=== PATIENT | female | born 1985 | race Caucasian/White ===

== ENCOUNTER → 2017-02-05 | Outpatient (CLI) | payer MEDICAID ==
[2017-02-05 08:28] LABS: CH 29.9; CHCM 33.1; HCT 38.9 % (34.0-46.0); HDW 2.18; HGB 12.7 gm/dL (11.4-16.0); MCH 29.7 pg (25.0-35.0); MCHC 32.7 g/dL (31.0-37.0); MCV 90.9 fL (80.0-100.0); Mean Platelet Volume 7.7; RBC 4.28 m/uL (3.80-5.40); RDW 13.2 % (11.5-15.5); WBC 6.9 k/uL (3.8-10.6)
[2017-02-05 08:38] LABS: Glucose 85 mg/dL (74-99); Non-African American GFR(MDRD) >60 (>60 ml/min/1.73 sqM)
[2017-02-05 09:10] LABS: Hepatitis B Surface Ag Index 0.08
--- NOTE | 2017-02-05 10:03 | US ---
EXAMINATION TYPE: US OB <= 14 wk fetus DATE OF EXAM: 02/05/2017 COMPARISON: NONE CLINICAL HISTORY: Z36 Confirm dates. EXAM PERFORMED: Transabdominal (TA) EXAM MEASUREMENTS: GESTATIONAL AGE / DATING Physician Established: not established Dates by LMP: (9 weeks/5 days) EDC: 09/05/17 Dates by First Scan: no prior scan Dates by Current Scan for: (10 weeks/0 days) EDC: 09/03/17 MATERNAL ANATOMY Uterus: 9.4 x 7.2 x 8.8cm Right Ovary: 3.6 x 2.6 x 3.2cm Left Ovary: 3.2 x 1.4 x 1.9cm Post CDS / Adnexa: wnl Presence of free fluid: no Presence of corpus luteal cyst: yes, right ovary = 2.3 x 2.3 x 2.7cm GESTATION / SURVEY CRL: 3.1cm (10 weeks/0 days) Yolk Sac (normal less than 6mm): 0.5cm Heart Rate: 163 bpm Rhythm: Normal IUP: Viable IUP Beta HcG (if available): unavailable IMPRESSION: Single viable intrauterine patency corresponding to ultrasound age 10 weeks 0 days with estimated guerrero e of delivery 09/03/2017.
[2017-02-05 15:58] LABS: Treponemal Ab Non-Reactive (Non-Reactive)
== END | disposition home or self-care (01) ==
LOC: RADUSWWP 07:38
PROVIDERS: ATTEND Obstetrics & Gynecology
DX: Z36 Encounter for antenatal screening of mother (principal); O26.811 Pregnancy related exhaustion and fatigue, first trimester; Z3A.10 10 weeks gestation of pregnancy
CPT/HCPCS: 36415; 76801; 82565; 82947; 85027; 86762; 86780; 86850; 86900; 86901; 87340; 87390

== ENCOUNTER → 2017-05-28 | Outpatient (CLI) | payer MEDICAID ==
[2017-05-28 11:10] LABS: CH 29.7; CHCM 32.9; HCT 39.3 % (34.0-46.0); HDW 2.46; HGB 12.8 gm/dL (11.4-16.0); MCH 29.5 pg (25.0-35.0); MCHC 32.5 g/dL (31.0-37.0); MCV 90.6 fL (80.0-100.0); Mean Platelet Volume 7.2; RBC 4.34 m/uL (3.80-5.40); RDW 12.5 % (11.5-15.5)
== END | disposition home or self-care (01) ==
LOC: LABWHC1 09:48
PROVIDERS: ATTEND Obstetrics & Gynecology
DX: Z34.82 Encounter for supervision of other normal pregnancy, second trimester (principal)
CPT/HCPCS: 36415; 82950; 85027; 86850

== ENCOUNTER → 2017-06-08 | Outpatient (CLI) | payer MEDICAID ==
--- NOTE | 2017-06-08 08:37 | US ---
EXAMINATION TYPE: US OB >= 14 wk fetus DATE OF EXAM: 06/08/2017 COMPARISON: None for this at this location. CLINICAL HISTORY: G93.0 UNILATERAL CHOROID PLEXUS CYST Choroid plexus cyst TECHNIQUE: Transabdominal (TA) GESTATIONAL AGE / DATING Physician Established: (27 weeks/2 days) EDC: 09/05/17 Dates by LMP: unknown Dates by First Scan: (27 weeks/4 days) EDC: 09/03/17 Dates by Current Scan: (27 weeks/6 days) EDC: 09/01/17 SURVEY IUP: Single PLACENTA: Anterior PREVIA: No Previa KERRI: 12.8 cm Normal CERVICAL LENGTH (transabdominal: norm > 3.0cm): 3.8 cm BIOMETRY PRESENTATION: Breech LIE: Longitudinal BPD: 6.9 cm 27 weeks / 6 days HC: 26.1 cm 28 weeks / 3 days AC: 22.7 cm 27 weeks / 1 days FL: 5.2 cm 27 weeks / 6 days ESTIMATED WEIGHT IN GRAMS: 1081 grams ESTIMATED WEIGHT IN LBS/OZ: 2 lbs. 6 oz. WEIGHT PERCENTAGE BASED ON ESTABLISHED DATES: 45% HC/AC: 1.15 Normal FL/AC: 23% Normal HEART RATE: 152 bpm RHYTHM: Normal Single viable IUP 27wks/6days with ADRIAN of 09/01/17 IMPRESSION: Single intrauterine gestation estimated at 27 weeks 6 days gestation. The estimated date of confineme nt is 09/01/2017 based on current ultrasound measurements. 2. Reported choroid plexus cyst is not identified on these images.
== END | disposition home or self-care (01) ==
LOC: RADUSWWP 07:00
PROVIDERS: ATTEND Obstetrics & Gynecology
DX: Z34.92 Encounter for supervision of normal pregnancy, unspecified, second trimester (principal); Z3A.27 27 weeks gestation of pregnancy
CPT/HCPCS: 76805

== ENCOUNTER → 2017-07-31 | Outpatient (CLI) | payer MEDICAID ==
[2017-07-31 13:09] LABS: Albumin 3.4 g/dL (3.5-5.0); Bilirubin, Delta 0.2 mg/dL (0.0-0.2); Bilirubin,Unconjugated 0.1 mg/dL (0.0-1.1); Total Bilirubin 0.3 mg/dL (0.2-1.3); Total Protein 6.3 g/dL (6.3-8.2)
== END | disposition home or self-care (01) ==
LOC: LABWHC1 12:02
PROVIDERS: ATTEND Obstetrics & Gynecology
DX: O26.619 Liver and biliary tract disorders in pregnancy, unspecified trimester (principal); K83.1 Obstruction of bile duct; Z3A.00 Weeks of gestation of pregnancy not specified
CPT/HCPCS: 36415; 80076; 82239

== ENCOUNTER 2017-08-20 05:05 | Inpatient (IN) | payer MEDICAID ==
[2017-08-20] MEDS ORDERED: TERBUTALINE 1 MG/ML VIAL SQ PRN (05:39)
[2017-08-20] MEDS ORDERED: LIDOCAINE 1% (PF) 10 MG/ML (30 ML SDV) SQ PRN (05:39)
[2017-08-20] MEDS ORDERED: OXYTOCIN 10 UNIT/ML 1 ML VIAL IM PRN (05:39)
[2017-08-20] MEDS ORDERED: AMPICILLIN 2,000 MG in SODIUM CHLORIDE 0.9% 100 ML IVPB STA (05:39)
[2017-08-20] MEDS ORDERED: METHYLERGONOVINE 0.2 MG/ML 1 ML AMP IM PRN (05:39)
[2017-08-20] MEDS ORDERED: CARBOPROST TROMETHAMINE 250 MCG/ML 1 ML AMP IM PRN (05:39)
[2017-08-20] MEDS ORDERED: OXYTOCIN 20 UNITS/1000 ML NS 1,000 ML IV SCH (05:45)
[2017-08-20] MEDS: LACTATED RINGERS 1,000 ML IV SCH ×2 (06:03→09:13)
[2017-08-20 06:35] LABS: Basophils % (A) 0 %; Eosinophils # (A) 0.1 k/uL (0-0.7); Eosinophils % (A) 1 %; HCT 36.9 % (34.0-46.0); HGB 11.6 gm/dL (11.4-16.0); Lymphocytes # (A) 1.7 k/uL (1.0-4.8); Lymphocytes % (A) 15 %; MCH 27.2 pg (25.0-35.0); MCHC 31.5 g/dL (31.0-37.0); MCV 86.4 fL (80.0-100.0); Mean Platelet Volume 7.9; Monocytes # (A) 0.5 k/uL (0-1.0); Monocytes % (A) 4 %; Neutrophils # (A) 9.3 k/uL (1.3-7.7); Neutrophils % (A) 79 %; Platelet Count 229 k/uL (150-450); RBC 4.27 m/uL (3.80-5.40); RDW 13.1 % (11.5-15.5); WBC 11.8 k/uL (3.8-10.6)
--- NOTE | 2017-08-20 06:43 | P.HPOB ---
History of Present Illness H&P Date: 08/20/17 Chief Complaint: Contractions. This patient is a pleasant 31-year-old 3 para 2 female estimated date of confinement 09/03/2017 estimated gestational age 38-0/7 weeks gestation who is admitted to labor and delivery with complaints of regular painful contractions. Patient's care is complicated by an isolated choroid plexus cyst which resolved on its own.. She's been otherwise uncomplicated. Review of Systems Constitutional: Denies chills, Denies fever Gastrointestinal: Reports heartburn Genitourinary: Reports Menstruation: Reports amenorrhea Past Medical History Additional Past Medical History / Comment(s): Patient has a history of ulcerative proctitis. History of Any Multi-Drug Resistant Organisms: None Reported Additional Past Surgical History / Comment(s): LEEP PROCEDURE, NASAL CYST REMOVED, COLONOSCOPY 2013 Past Anesthesia/Blood Transfusion Reactions: No Reported Reaction Past Psychological History: No Psychological Hx Reported Smoking Status: Never smoker Past Alcohol Use History: None Reported Past Drug Use History: None Reported - Past Family History Mother Family Medical History: No Reported History Medications and Allergies Home Medications Medication Instructions Recorded Confirmed Type Vit No.124/Iron/Folic 1 each PO DAILY 10/25/14 08/20/17 History [ Vitamin Tablet] Allergies Allergy/AdvReac Type Severity Reaction Status Date / Time No Known Allergies Allergy Verified 08/20/17 05:38 Exam - Vital Signs Vital signs: Vital Signs Temp Pulse Resp BP 08/20/17 06:08 97.6 F 93 16 137/75 Intake and Output 08/19/17 08/19/17 08/20/17 14:59 22:59 06:59 Other: # Voids 1 Weight 77.564 kg Patient Weight 08/20/17 06:59 Weight 77.564 kg - OBG Physical Exam Abdomen: bowel sounds normal, no diffuse tenderness, no bruit present, no guarding noted, no hepatomegaly, no splenomegaly, no mass Vulva: both: normal Vagina: normal moisture, no discharge Cervix: no lesion (Cervix per the RN is 4 cm dilated.), no discharge Uterus: enlarged (Fundal height is consistent with a term .) Results blood work shows she is O-, rubella immune, hepatitis B negative, RPR nonreactive, Glucola was abnormal with a normal three-hour gtt., Patient had a positive group B strep, patient received RhoGAM on 06/11/2017, ultrasounds have shown normal anatomy. Assessment and Plan Assessment: This is a pleasant 31-year-old 3 para 2 female 38-0/7 weeks gestation who is admitted to labor and delivery in active labor. Patient is a positive group B strep culture and therefore we will prophylax with antibiotics and then proceed with artificial rupture membranes after the antibiotic has been in for sufficient time. Anticipate vaginal delivery. (1) Third trimester Current Visit: Yes Status: Acute Code(s): Z34.93 - ENCNTR FOR SUPRVSN OF NORMAL PREG, UNSP, THIRD TRIMESTER SNOMED Code(s): 48486099 (2) Normal labor Current Visit: Yes Status: Acute Code(s): O80 - ENCOUNTER FOR FULL-TERM UNCOMPLICATED DELIVERY; Z37.9 - OUTCOME OF DELIVERY, UNSPECIFIED SNOMED Code(s ): 20399149 (3) Group B streptococcal carriage complicating Current Visit: Yes Status: Acute Code(s): O99.820 - STREPTOCOCCUS B CARRIER STATE COMPLICATING SNOMED Code(s): 903966785480266 (4) Rh negative status during Current Visit: Yes Status: Acute Code(s): O09.899 - SUPERVISION OF OTHER HIGH RISK PREGNANCIES, UNSP TRIMESTER; Z67.91 - UNSPECIFIED BLOOD TYPE, RH NEGATIVE SNOMED Code(s): 707766530
--- NOTE | 2017-08-20 07:50 | P.MSEPDOC ---
Presenting Problems - Arrival Data Date of Arrival on Unit: 08/20/17 Time of Arrival on Unit: 05:10 Mode of Transport: Ambulatory - Complaint OB-Reason for Admission/Chief Complaint: Possible Onset of Labor Medical History - Information : 3 Para: 2 Term: 2 : 0 Abortions: Spontaneous or Elective: 0 Number of Living Children: 2 - Gestational Age Gestational Age by ADRIAN (wks/days): 38 Weeks and 0 Days - History Complications: GBS+ Review of Systems - Review of Systems Constitutional: No problems Breast: No problems ENT: No problems Cardiovascular: No problems Respiratory: No problems Gastrointestinal: No problems Genitourinary: No problems Musculoskeletal: No problems Neurological: No problems Skin: No problems Vital Signs - Temperature Temperature: 97.6 F Temperature Source: Temporal Artery Scan - Pulse Right Pulse Rate: 93 - Respirations Respiratory Rate: 16 - Blood Pressure Right Arm Blood Pressure: 137/75 Blood Pressure Mean: 95 Blood Pressure Source: Automatic Cuff Medical Screen Scoring (Pre) - Cervical Exam Dilation: 4-7 cm = 2 Effacement: More than 50% = 2 Membranes: Intact - Uterine Contractions Frequency: > or = 36 weeks =2 Duration: > 40 seconds = 2 Intensity: N/A - Maternal Vital Signs Maternal Temperature: N/A Maternal Blood Pressure: N/A Signs of Preeclampsia: N/A - Assessment Baseline FHR: 150 Heart Rate - NICHD Category: Category I (Normal) = 0 NST: Reactive Position: N/A - Total Score Total Score (Pre): 8 - Level of Risk Level of Risk: Medium (6-9) Physician Notification (Pre) - Physician Notified Physician Notified Date: 08/20/17 Physician Notified Time: 05:35 Physician/Practitioner Notifed:: Dr Villatoro - Notification Comment Comment: orders to admit for labor, start IV, abx Disposition - Disposition OB Disposition: Admit I agree with the RN Medical Screening Exam: Yes Risk & Benefit of care provided described in d/c instruction: Yes Diagnosis: ENCOUNTER FOR FULL-TERM UNCOMPLICATED DELIVERY
[2017-08-20] MEDS ORDERED: SODIUM CHLORIDE 0.9% 100 ML BAG ONE (09:20)
[2017-08-20] MEDS ORDERED: fentaNYL (PF) 50 MCG/ML 5 ML AMP ONE (09:20)
[2017-08-20] MEDS ORDERED: BUPIVACAINE (PF) 0.25% 30 ML VIAL ONE (09:20)
[2017-08-20] MEDS ORDERED: BUPIVACAINE (PF) 0.25% 25 ML, fentaNYL (PF) 200 MCG in SODIUM CHLORIDE 0.9% 71 ML EPIDURAL ONE (09:35)
[2017-08-20] MEDS ORDERED: AMPICILLIN 1,000 MG in SODIUM CHLORIDE 0.9% 50 ML IVPB SCH (10:00)
[2017-08-20] MEDS ORDERED: SIMETHICONE 80 MG CHEWABLE PO PRN (13:09)
[2017-08-20] MEDS ORDERED: LANOLIN CREAM 5 GM TUBE TOPICAL PRN (13:09)
[2017-08-20] MEDS ORDERED: WITCH HAZEL 1 EACH MED..PAD TOPICAL PRN (13:09)
[2017-08-20] MEDS ORDERED: diphenhydrAMINE 50 MG/ML 1 ML VIAL IVP PRN (13:09)
[2017-08-20] MEDS ORDERED: BENZOCAINE/MENTHOL SPRAY 1 GM/SPRAY AEROSOL TOPICAL PRN (13:09)
[2017-08-20] MEDS ORDERED: diphenhydrAMINE 25 MG CAP PO PRN (13:09)
[2017-08-20] MEDS ORDERED: ACETAMINOPHEN TAB 325 MG TAB PO PRN (13:09)
[2017-08-20] MEDS ORDERED: BISACODYL 10 MG SUPP RECTAL PRN (13:09)
[2017-08-20] MEDS ORDERED: HYDROCORTISONE 2.5% RECTAL CREAM 30 GM TUBE RECTAL PRN (13:09)
[2017-08-20] MEDS ORDERED: ZOLPIDEM 5 MG TAB PO PRN (13:09)
[2017-08-20] MEDS ORDERED: Rhogam IMMUNE GLOBULIN 1,500 UNIT/1 ML IM ONE (13:09)
[2017-08-20] MEDS: SENNOSIDES-DOCUSATE SODIUM 1 EACH TAB PO SCH ×2 (13:44→20:37)
[2017-08-20] MEDS: IBUPROFEN 600 MG TAB PO PRN ×2 (15:53→21:52)
--- NOTE | 2017-08-20 17:49 | P.PROBDLV ---
Vaginal Delivery Note - . Vaginal Delivery Note: Normal spontaneous vaginal delivery viable female infant Apgars 9 and 10 delivery time is 1301 hours. Please see dictated H&P for intimate details of this patient's admission. In brief summary this is a pleasant 32-year-old 3 para 2 female admitted to labor and delivery this morning with complaints of regular painful contractions. Patient is 38 weeks gestation and found to be 4 cm dilated active labor. Patient does have a history of positive strep this therefore is given IV ampicillin. After being infused for approximately 2 hours we then have artificial rupture membranes for clear fluid. Patient's labor progresses and she does get an epidural for pain control. Approximately a half hour after the epidural is placed the nurse did do pelvic exam and noticed a hand to be presenting in front of the head. At this time I examined the patient and confirmed a hand presentation. At this point the head was not completely engaged in the pelvis and therefore I was able to reduce the hand with steady pressure. With the hand reduced patient's labor continued normally and she did get to complete. She pushed the head to the perineum. We have delivery of the infant's head in a controlled fashion. Mouth and nares are bulb suctioned. There is a nuchal cord which is loose and reduced. With gentle downward traction we then have deliver the anterior and posterior shoulder and rest this infant's body. This is a vigorous viable female . Apgars are 9 and 10 delivery time was 1301 hrs. After delivery of the infant the umbilical cord is doubly clamped and cut it appears to be trivascular. Cord blood is obtained for Rh status. The placenta is then spontaneously delivered intact. Estimated blood loss is 100 mL. A second- degree midline laceration is repaired with 3-0 Vicryl in the usual fashion. All counts are correct 3. There are no complications. Infant and mother are stable delivery room.
[2017-08-21] MEDS: IBUPROFEN 600 MG TAB PO PRN ×2 (04:38→10:25)
--- NOTE | 2017-08-21 05:54 | P.PNOBGVD ---
Subjective - Subjective Patient reports: Reports appetite normal, Reports voiding normally, Reports pain well controlled, Reports ambulating normally : doing well Objective - Latest Vital Signs Latest vital signs: Vital Signs Temp Pulse Resp BP Pulse Ox 08/21/17 00:00 98.1 F 87 14 134/86 98 08/20/17 20:00 98.2 F 88 14 128/75 08/20/17 15:15 97.6 F 89 18 125/64 08/20/17 14:45 97.7 F 85 18 127/76 08/20/17 14:15 97.6 F 74 18 117/69 08/20/17 14:00 75 122/63 08/20/17 13:45 97.1 F L 80 18 119/70 08/20/17 13:30 97.8 F 77 18 131/72 08/20/17 13:15 98.3 F 75 18 129/69 08/20/17 07:50 97.6 F 93 16 137/75 08/20/17 06:08 97.6 F 93 16 137/75 Intake and Output 08/20/17 08/20/17 08/21/17 14:59 22:59 06:59 Intake Total 10.95 Output Total 700 Balance -689.05 Intake: Intake, IV Titration 10.95 Amount Oxytocin 20 Units/1000 ml 10.95 Ns 1,000 ml @ 1 MILLIUNIT/MIN 3 mls/hr IV .Q24H LAURA Rx#:[id number] Output: Urine 600 Estimated Blood Loss 100 Other: # Voids 1 2 - Exam Lungs: bilateral: normal Chest: Normal S1, Normal S2 Extremities: Present: normal Abdomen: Present: normal appearance, soft Uterus: Present: normal, firm - Labs Labs: Abnormal Lab Results - Last 24 Hours (Table) 08/20/17 Range/Units 06:23 WBC 11.8 H (3.8-10.6) k/uL Neutrophils # 9.3 H (1.3-7.7) k/uL Assessment and Plan Assessment: Post day #1. Patient is resting without complaints wishes to go home. Vital signs are stable she is afebrile. Uterus is firm nontender she's having normal lochia. My impression this is a normal course. Plan is to continue routine care discharge home later today. (1) Third trimester Current Visit: Yes Status: Acute Code(s): Z34.93 - ENCNTR FOR SUPRVSN OF NORMAL PREG, UNSP, THIRD TRIMESTER SNOMED Code(s): 54373778 (2) Normal labor Current Visit: Yes Status: Acute Code(s): O80 - ENCOUNTER FOR FULL-TERM UNCOMPLICATED DELIVERY; Z37.9 - OUTCOME OF DELIVERY, UNSPECIFIED SNOMED Code(s ): 55540428 (3) Group B streptococcal carriage complicating Current Visit: Yes Status: Acute Code(s): O99.820 - STREPTOCOCCUS B CARRIER STATE COMPLICATING SNOMED Code(s): 894760894163991 (4) Rh negative status during Current Visit: Yes Status: Acute Code(s): O09.899 - SUPERVISION OF OTHER HIGH RISK PREGNANCIES, UNSP TRIMESTER; Z67.91 - UNSPECIFIED BLOOD TYPE, RH NEGATIVE SNOMED Code(s): 759845704
--- NOTE | 2017-08-21 05:57 | P.DS ---
Providers Date of admission: 08/20/17 05:40 Expected date of discharge: 08/21/17 Attending physician: Sudheer Villatoro Primary care physician: Stated None - Discharge Diagnosis(es) (1) Third trimester Current Visit: Yes Status: Acute (2) Normal labor Current Visit: Yes Status: Acute (3) Group B streptococcal carriage complicating Current Visit: Yes Status: Acute (4) Rh negative status during Current Visit: Yes Status: Acute Hospital Course: Please see dictated H&P for intimate details of this patient's admission. In brief summary this is a pleasant 32-year-old 3 para 2 female 38 weeks gestation admitted to labor and delivery in active labor. Patient quickly goes on to have a vaginal delivery viable female . Please see dictated delivery note. day #1 patient's without complaints and wishes to go home. Patient's discharge home follow up with me in 6 weeks. Procedures: Normal spontaneous vaginal delivery. Patient Condition at Discharge: Good Plan - Discharge Summary New Discharge Prescriptions: New Ibuprofen [Motrin] 600 mg PO Q6HR PRN #40 tab PRN Reason: Mild Pain Or Fever >= 100.5 No Action Vit No.124/Iron/Folic [ Vitamin Tablet] 1 each PO DAILY Discharge Medication List Vit No.124/Iron/Folic [ Vitamin Tablet] 1 each PO DAILY [History] Ibuprofen [Motrin] 600 mg PO Q6HR PRN #40 tab 08/21/17 [Rx] Follow up Appointment(s)/Referral(s): Sudheer Villatoro MD [STAFF PHYSICIAN] - 10/01/17 9:30 am Patient Instructions/Handouts: Vaginal Delivery (DC) Activity/Diet/Wound Care/Special Instructions: No intercourse or anything per vagina for 6 weeks. Please call if any fever, chills, excessive vaginal bleeding, and/or abdominal pain. Discharge Disposition: HOME SELF-CARE
[2017-08-21 07:43] VITALS: BP 120/83; PULSE 90; RESP 16; TEMP 97.6
[2017-08-21] MEDS: SENNOSIDES-DOCUSATE SODIUM 1 EACH TAB PO SCH (10:25)
== END 2017-08-21 15:28 | disposition home or self-care (01) | DRG 775 ==
LOC: FBPOP 05:05 → 4FBP 05:40
PROVIDERS: ADMIT Obstetrics & Gynecology; ATTEND Obstetrics & Gynecology
PROC: 10E0XZZ Delivery of Products of Conception, External Approach (ICD-10-PCS; principal; 2017-08-20)
PROC: 0KQM0ZZ Repair Perineum Muscle, Open Approach (ICD-10-PCS; 2017-08-20)
PROC: 00HU33Z Insertion of Infusion Device into Spinal Canal, Percutaneous Approach (ICD-10-PCS; 2017-08-20)
PROC: 3E0R3NZ Introduction of Analgesics, Hypnotics, Sedatives into Spinal Canal, Percutaneous Approach (ICD-10-PCS; 2017-08-20)
DX: O99.824 Streptococcus B carrier state complicating childbirth (principal); O69.81X0 Labor and delivery complicated by cord around neck, without compression, not applicable or unspecified; O70.1 Second degree perineal laceration during delivery; Z37.0 Single live birth; Z3A.38 38 weeks gestation of pregnancy; Z88.6 Allergy status to analgesic agent; Z67.91 Unspecified blood type, Rh negative
CPT/HCPCS: 59025; 85025; 85461; 88307; 99213

== ENCOUNTER 2017-12-02 09:08 | Day surgery (SDC) | payer MEDICAID ==
[2017-12-01 08:39] VITALS: BMI 25.0
[~2017-12-02 09:08] MED LIST: LACTATED RINGERS 1,000 ML IV SCH; LIDOCAINE 1% 20 ML VIAL (10MG/ML) FOR IV START INTRADERMA PRN
[2017-12-02 09:57] VITALS: RESP 16; TEMP 98.3
[2017-12-02] MEDS ORDERED: LIDOCAINE 1% INJ 10MG/ML (20 ML MDV) ONE (10:25)
[2017-12-02] MEDS ORDERED: PROPOFOL 10 MG/ML 20 ML VIAL IV ONE (10:25)
--- NOTE | 2017-12-02 10:41 | P.PCN ---
Date of Procedure: 12/02/17 Procedure(s) Performed: BRIEF HISTORY: Patient is a 32-year-old pleasant, white female, scheduled for an elective colonoscopy as a part of surveillance of long-standing history of ulcerative sigmoiditis diagnosed in 2011. The patient recently had a flareup with 10 bowel movements daily small amount of blood and mucus in the stool. She is on Canasa suppository and Lialda daily. PROCEDURE PERFORMED: Colonoscopy with biopsy. PREOPERATIVE DIAGNOSIS: History of ulcerative proctitis diagnosed in 2011. IV sedation per Anesthesia. PROCEDURE: After informed consent was obtained, the patient, was brought into the endoscopy unit. IV sedation was administered by Anesthesia under continuous monitoring. Digital rectal examination was normal. Initially the Olympus CF- 160 flexible video colonoscope was then inserted in the rectum, gradually advanced into the cecum without any difficulty. Careful examination was performed as the scope was gradually being withdrawn. Ileocecal valve and the appendiceal orifice were visualized and appeared normal. Prep was excellent. Mucosa of the cecum, ascending colon, transverse colon, descending colon, sigmoid colon appeared normal. Mild erythema noted in the rectum up to 15 cm from the anal verge consistent with proctitis and biopsies were done from this area. Retroflexion was performed in the rectum and no lesions were seen. The patient tolerated the procedure well. IMPRESSION: Mild proctitis Rest of the colon appeared normal RECOMMENDATIONS: Findings of this examination were discussed with the patient as well as a family. She was advised to follow with the biopsy results and continue current medications..
[2017-12-02 10:45] VITALS: BP 113/57
[2017-12-02 10:59] VITALS: PULSE 75
== END 2017-12-02 11:21 | disposition home or self-care (01) ==
LOC: ORWHC2ENDO 09:08
PROVIDERS: ATTEND Internal Medicine Gastroenterology
DX: K51.20 Ulcerative (chronic) proctitis without complications (principal); Z79.899 Other long term (current) drug therapy; Z88.5 Allergy status to narcotic agent
CPT/HCPCS: 81025; 88305; 88342; 88341; 45380; J2001; J2704

== ENCOUNTER → 2018-06-04 | Outpatient (CLI) | payer MEDICAID ==
[2018-06-04 08:30] LABS: Appearance,Urine Cloudy (Clear); Bacteria,Urine Few /hpf; Bilirubin,Urine Negative (Negative); Blood,Urine Negative (Negative); Color,Urine Yellow; Glucose,Urine (UA) Negative (Negative); Ketones,Urine Negative (Negative); Leukocyte Esterase,Urine Moderate (Negative); Mucus,Urine Rare /hpf; Nitrite,Urine Negative (Negative); Protein,Urine Negative (Negative); RBC,Urine 4 /hpf (0-5); Specific Gravity,Urine 1.016 (1.001-1.035); Squamous Epithelial Cell,Urine 6 /hpf (0-4); Urobilinogen,Urine <2.0 mg/dL (<2.0); WBC,Urine 4 /hpf (0-5)
[2018-06-04 08:35] LABS: Basophils # (A) 0.1 k/uL (0-0.2); Basophils % (A) 1 %; Eosinophils # (A) 0.2 k/uL (0-0.7); Eosinophils % (A) 4 %; HCT 40.4 % (34.0-46.0); HGB 12.7 gm/dL (11.4-16.0); Lymphocytes # (A) 1.8 k/uL (1.0-4.8); Lymphocytes % (A) 32 %; MCH 27.8 pg (25.0-35.0); MCHC 31.4 g/dL (31.0-37.0); MCV 88.7 fL (80.0-100.0); Mean Platelet Volume 7.2; Monocytes # (A) 0.3 k/uL (0-1.0); Monocytes % (A) 5 %; Neutrophils # (A) 3.3 k/uL (1.3-7.7); Neutrophils % (A) 57 %; Platelet Count 212 k/uL (150-450); RBC 4.56 m/uL (3.80-5.40); RDW 13.1 % (11.5-15.5); WBC 5.7 k/uL (3.8-10.6)
[2018-06-04 17:10] LABS: Rheumatoid Factor 10 IU/mL (0-15)
[2018-06-04 17:14] LABS: ALT 10 U/L (8-44); AST 16 U/L (13-35); Alkaline Phosphatase 65 U/L (41-126); Calcium 9.3 mg/dL (8.7-10.3); Carbon Dioxide 23.6 mmol/L (21.6-31.8); Chloride 108 mmol/L (96-109); Cholesterol 114 mg/dL (0-200); Globulin 1.8 g/dL (2.1-3.7); Glucose 93 mg/dL (70-110); Potassium 4.5 mmol/L (3.5-5.5); Sodium 140 mmol/L (135-145); Total Bilirubin 0.6 mg/dL (0.3-1.2); Total Protein 6.3 g/dL (6.2-8.2); Triglycerides <50.0 mg/dL (0.0-149.0); VLDL Calculation 9.98 mg/dL (5.00-40.00)
[2018-06-04 20:27] LABS: Hemoglobin A1C 5.3 % (4.0-6.0)
[2018-06-07 12:24] LABS: ANA Pattern Homogeneous
== END | disposition home or self-care (01) ==
LOC: LABWHC1 07:39
PROVIDERS: ATTEND Internal Medicine
DX: K51.80 Other ulcerative colitis without complications (principal); M19.90 Unspecified osteoarthritis, unspecified site
CPT/HCPCS: 36415; 80053; 80061; 81001; 83036; 84439; 84443; 85025; 86038; 86039; 86200; 86431

== ENCOUNTER → 2018-06-11 | Outpatient (CLI) | payer MEDICAID ==
[2018-06-11 17:27] LABS: DNA Double-Stranded NEGATIVE (NEGATIVE)
== END | disposition home or self-care (01) ==
LOC: LABWHC1 07:43
PROVIDERS: ATTEND Internal Medicine
DX: R76.0 Raised antibody titer (principal)
CPT/HCPCS: 36415; 83516; 86225; 86235

== ENCOUNTER → 2020-04-18 | Outpatient (CLI) | payer MEDICAID ==
--- NOTE | 2020-04-23 14:27 | MM ---
Reason for exam: clinical finding. Baseline mammogram. History: Benign cyst aspiration of the right breast, 2005. Took hormonal contraceptives for 8 years beginning at age 18. Physical Findings: Nurse Summary: 0.5cm nodule in the right breast at the nipple (nurse dw). MG 3D Diag Mammo W/Cad HARJEET Bilateral CC and MLO view(s) were taken. The breast tissue is extremely dense which could obscure a lesion on mammography. These results were verbally communicated with the patient and result sheet given to the patient on 04/18/20. ASSESSMENT: Incomplete: need additional imaging evaluation, BI-RAD 0 RECOMMENDATION: Ultrasound of both breasts. (6 o'clock left, at BB right)
--- NOTE | 2020-04-23 14:28 | USB ---
Reason for exam: additional evaluation requested from abnormal screening. History: Benign cyst aspiration of the right breast, 2005. Took hormonal contraceptives for 8 years beginning at age 18. US Breast Limited BILAT Right limited breast ultrasound including focal area of concern, retroareolar and axilla demonstrates a 17 x 3 x 6mm lobular, cystic duct at 2 o'clock. Left limited breast ultrasound including focal area of concern, retroareolar and axilla demonstrates no cystic or solid lesion seen. These results were verbally communicated with the patient and result sheet given to the patient on 04/18/20. ASSESSMENT: Benign, BI-RAD 2 RECOMMENDATION: Routine screening mammogram of both breasts at age 38.
== END | disposition home or self-care (01) ==
LOC: RADMAMWWP 10:02
PROVIDERS: ATTEND Obstetrics & Gynecology
DX: R92.8 Other abnormal and inconclusive findings on diagnostic imaging of breast (principal); N64.4 Mastodynia
CPT/HCPCS: 77062; 77066

== ENCOUNTER → 2020-08-08 | Outpatient (CLI) | payer MEDICAID ==
--- NOTE | 2020-08-08 14:47 | US ---
EXAMINATION TYPE: US OB <= 14 wk twins DATE OF EXAM: 08/08/2020 COMPARISON: NONE CLINICAL HISTORY: 34-year-old female Z36 confirm dates. EXAM PERFORMED: Transabdominal (TA) FINDINGS: EXAM MEASUREMENTS: GESTATIONAL AGE / DATING Physician Established: not yet established Dates by LMP: ( 9 weeks/0 days) EDC: 03-13-21 Dates by First Scan: 1st scan today Dates by Current Scan for Baby A: ( 9 weeks/6 days) EDC: 03-07-15 Dates by Current Scan for Baby B: (9 weeks/0 days) EDC: 03-13-21 MATERNAL ANATOMY Uterus: 12.5 x 7.7 x 9.3cm Right Ovary: 3.6 x 2.0 x 1.8cm Left Ovary: 3.6 x 2.4 x 2.4cm Post CDS / Adnexa: wnl Presence of free fluid: no Probable corpus luteal cyst: 2.5 x 1.6 x 1.4cm Presence of subchorionic bleed: no Presence of two separate gestational sacs: Yes, there is twin peak sign. GESTATION / SURVEY TWIN A CRL: 2.9cm (9wks/6days) MSD: 3.7 (9wks/4days) Yolk Sac (normal less than 6mm): 3mm Heart Rate: 174 bpm Rhythm: Normal IUP: Viable IUP TWIN B CRL: 2.9cm (9wks/0days) MSD: 2.9 (8wks/5days) Yolk Sac (normal less than 6mm): 4mm Heart Rate: 179 bpm Rhythm: Normal IUP: Viable IUP Date of LMP: 06-06-20 Beta HcG (if available): Not available at this time IMPRESSION: 1. Live twin pregnancies (diamniotic, dichorionic) with estimated gestational age of 9 weeks 0 days b y LMP. Baby B is smaller by 6 days (at 9 weeks 0 days) and baby A measures 9 weeks 6 days by CRL. Bab y B also shows borderline tachycardia at 179 BPM. Given the discrepancy in size between the bab ies, short interval follow-up is recommended. 2. Complete survey is recommended at 18-20 weeks.
== END | disposition home or self-care (01) ==
LOC: RADUSWWP 12:04
PROVIDERS: ATTEND Obstetrics & Gynecology
DX: Z36.87 Encounter for antenatal screening for uncertain dates (principal); Z3A.09 9 weeks gestation of pregnancy
CPT/HCPCS: 76801; 76802

== ENCOUNTER → 2020-08-13 | Outpatient (CLI) | payer MEDICAID ==
[2020-08-13 14:35] LABS: HCT 37.1 % (37.2-46.3); HGB 12.1 g/dL (12.0-15.0); MCH 28.7 pg (27.0-32.0); MCHC 32.6 g/dL (32.0-37.0); MCV 87.9 fL (80.0-97.0); Mean Platelet Volume 10.3 fL (9.5-12.2); Platelet Count 230 X 10*3/uL (140-440); RBC 4.22 X 10*6/uL (4.10-5.20); RDW 12.4 % (11.5-14.5); WBC 7.48 X 10*3/uL (4.50-10.00)
[2020-08-13 14:47] LABS: African American GFR (CKD) 135.9 (60.0-200.0); Non-African American GFR(CKD) 117.3 (60.0-200.0)
[2020-08-13 17:54] LABS: Hepatitis B Surface Antigen Non-Reactive (Non-Reactive)
== END | disposition home or self-care (01) ==
LOC: LABWHC1 08:06
PROVIDERS: ATTEND Obstetrics & Gynecology
DX: Z34.81 Encounter for supervision of other normal pregnancy, first trimester (principal)
CPT/HCPCS: 36415; 82565; 82947; 85027; 86762; 86780; 86850; 86900; 86901; 87340

== ENCOUNTER → 2020-12-13 | Outpatient (CLI) | payer MEDICAID ==
[2020-12-13 20:05] LABS: HCT 34.7 % (37.2-46.3); HGB 10.9 g/dL (12.0-15.0); MCH 28.5 pg (27.0-32.0); MCHC 31.4 g/dL (32.0-37.0); MCV 90.6 fL (80.0-97.0); Mean Platelet Volume 10.5 fL (9.5-12.2); Platelet Count 225 X 10*3/uL (140-440); RBC 3.83 X 10*6/uL (4.10-5.20); RDW 12.6 % (11.5-14.5); WBC 12.57 X 10*3/uL (4.50-10.00)
== END | disposition home or self-care (01) ==
LOC: LABWHC1 11:48
PROVIDERS: ATTEND Obstetrics & Gynecology
DX: Z34.82 Encounter for supervision of other normal pregnancy, second trimester (principal); Z3A.00 Weeks of gestation of pregnancy not specified
CPT/HCPCS: 36415; 82950; 85027; 86850

== ENCOUNTER → 2020-12-18 | Outpatient (CLI) | payer MEDICAID ==
--- NOTE | 2020-12-18 15:09 | US ---
EXAMINATION TYPE: US OB anatomy transabd DATE OF EXAM: 12/18/2020 COMPARISON: NONE HISTORY: O36.62X0 LARGE FOR DATES LGA. prior exams done in [place], patient states vanishing twin TECHNIQUE: Transabdominal (TA) EXAM MEASUREMENTS: GESTATIONAL AGE / DATING Physician Established: (27 weeks/6 days) EDC: 03/13/21 Dates by LMP: lmp unknown Dates by First Scan: (27 weeks/6 days) EDC: 03/13/21 Dates by Current Scan for: (30 weeks/0 days) EDC: 02/26/21 SURVEY IUP: Single PLACENTA: Posterior PREVIA: No previa KERRI: 16.0 cm Normal CERVICAL LENGTH (transabdominal: norm > 3.0cm): 3.5 cm BIOMETRY PRESENTATION: Vertex LIE: Longitudinal BPD: 7.8 cm 31 weeks / 2 days HC: 28.1 cm 30 weeks / 6 days AC: 25.2 cm 29 weeks / 3 days FL: 5.3 cm 28 weeks / 3 days ESTIMATED WEIGHT IN GRAMS: 1366 grams ESTIMATED WEIGHT IN LBS/OZ: 3 lbs. 0 oz. WEIGHT PERCENTAGE BASED ON ESTABLISHED DATE: 88 % HC/AC: 1.12 Normal FL/AC: 21% Normal HEART RATE: 158 bpm RHYTHM: Normal ANATOMY SEEN (within normal limits): Choroid Plexus (bilateral) Midline Falx Four Chamber Heart Outflow tracts: LVOT/RVOT Stomach Situs Diaphragm Kidneys (bilateral) Bladder Cord Insert Three Vessel Cord Longitudinal Spine Transverse Spine ANATOMY NOT SEEN: due to age and position * Lateral Vent (< 1 cm) cm * Cisterna Magna (< 1.1 cm) cm * Nuchal Fold (< 0.6 cm) cm * Cerebellum (varies with age) cm Cavus Septi Pellucidi Nose / Lips Arms (bilateral) Legs (bilateral) IMPRESSION: Single live intrauterine measuring 30 weeks and 0 days gestation by sonographic criteria. L ateral ventricles, cisterna magna, nuchal fold, cerebellum, cavus septum pellucidum, nose/lips, arms and legs not seen.
== END | disposition home or self-care (01) ==
LOC: RADUSWWP 13:23
PROVIDERS: ATTEND Obstetrics & Gynecology
DX: O36.63X0 Maternal care for excessive fetal growth, third trimester, not applicable or unspecified (principal); Z3A.30 30 weeks gestation of pregnancy
CPT/HCPCS: 76811

== ENCOUNTER → 2021-01-10 | Outpatient (CLI) | payer MEDICAID ==
--- NOTE | 2021-01-10 09:01 | US ---
EXAMINATION TYPE: US OB >= 14 wk fetus DATE OF EXAM: 01/10/2021 COMPARISON: None CLINICAL HISTORY: O09.511 Supervision of elderly primigravida, gestational diabetes assess growth TECHNIQUE: OBTA GESTATIONAL AGE / DATING Physician Established: (31 weeks/1 days) EDC: 03/13/2021 Dates by LMP: (31 weeks/1 days) EDC: 03/13/2021 Dates by First Scan: (31 weeks/1 days) EDC: 03/13/2021 Dates by Current Scan: (33 weeks/1 days) EDC: 02/27/2021 SURVEY IUP: Single PLACENTA: Fundal PREVIA: No Previa KERRI: 10.6 cm Normal CERVICAL LENGTH (transabdominal: norm > 3.0cm): 3.1 cm BIOMETRY PRESENTATION: Vertex LIE: Longitudinal BPD: 8.4 cm 33 weeks / 6 days HC: 29.2 cm 32 weeks / 2 days AC: 30.5 cm 34 weeks / 4 days FL: 6.1 cm 31 weeks / 5 days ESTIMATED WEIGHT IN GRAMS: 2184 grams ESTIMATED WEIGHT IN LBS/OZ: 4 lbs. 13 oz. WEIGHT PERCENTAGE BASED ON ESTABLISHED DATES: 96% HC/AC: 0.9 Normal FL/AC: 20 Normal HEART RATE: 134 bpm RHYTHM: Normal Patient was measuring 2 weeks ahead at last ultrasound, mother does have gestational diabetes, today' s exam was to assess growth This is not an anatomic survey. IMPRESSION: Single live intrauterine measuring 33 weeks and 1 day gestational age by sonographic criter ia.
== END | disposition home or self-care (01) ==
LOC: RADUSWWP 07:40
PROVIDERS: ATTEND Obstetrics & Gynecology
DX: O24.419 Gestational diabetes mellitus in pregnancy, unspecified control (principal); O09.513 Supervision of elderly primigravida, third trimester; Z3A.33 33 weeks gestation of pregnancy
CPT/HCPCS: 76805

== ENCOUNTER 2021-01-25 19:39 | Outpatient (CLI) | payer MEDICAID ==
--- NOTE | 2021-01-25 21:10 | US ---
EXAMINATION TYPE: US OB >= 14 wk fetus DATE OF EXAM: 01/25/2021 COMPARISON: US 01/10/2021 CLINICAL HISTORY: FHR variables TECHNIQUE: Transabdominal (TA) GESTATIONAL AGE / DATING Physician Established: (34 weeks/1 days) EDC: 03/07/2021 Dates by Current Scan: (35 weeks/1 days) EDC: 02/28/2021 SURVEY IUP: Single PLACENTA: Fundal PREVIA: No Previa KERRI: 12.9 cm Normal CERVICAL LENGTH (transabdominal: norm > 3.0cm): 3.5 cm BIOMETRY PRESENTATION: Vertex LIE: Longitudinal BPD: 9.1 cm 36 weeks / 6 days HC: 31.7 cm 35 weeks / 5 days AC: 30.4 cm 34 weeks / 3 days FL: 6.5 cm 33 weeks / 4 days ESTIMATED WEIGHT IN GRAMS: 2440 grams ESTIMATED WEIGHT IN LBS/OZ: 5 lbs. 6 oz. WEIGHT PERCENTAGE BASED ON ESTABLISHED DATES: 78% HC/AC: 1.04 Normal FL/AC: 21% Normal HEART RATE: 153 bpm RHYTHM: Normal Viable IUP, measurements consistent with dates IMPRESSION: Single live intrauterine as above. No acute abnormality seen.
[2021-01-26 01:28] VITALS: BP 130/71; PULSE 86; RESP 14; TEMP 96.4
--- NOTE | 2021-01-26 07:34 | P.MSEPDOC ---
Presenting Problems - Arrival Data Date of Arrival on Unit: 01/25/21 Time of Arrival on Unit: 19:39 Mode of Transport: Portable - Complaint OB-Reason for Admission/Chief Complaint: NST Medical History - Information : 4 Para: 3 Term: 3 : 0 Abortions: Spontaneous or Elective: 0 Number of Living Children: 3 - Gestational Age Gestational Age by ADRIAN (wks/days): 34 Weeks and 1 Days - History Complications: Multiple Review of Systems - Review of Systems Constitutional: No problems Breast: No problems ENT: No problems Cardiovascular: No problems Respiratory: No problems Gastrointestinal: No problems Genitourinary: No problems Musculoskeletal: No problems Neurological: No problems Skin: No problems Vital Signs - Temperature Temperature: 96.4 F Temperature Source: Temporal Artery Scan - Pulse Right Supine Brachial Pulse Rate: 86 Pulse Assessment Method: Automatic Cuff - Respirations Respiratory Rate: 14 Oxygen Delivery Method: Room Air O2 Sat by Pulse Oximetry: 100 - Blood Pressure Right Arm Supine Blood Pressure: 130/71 Blood Pressure Mean: 90 Blood Pressure Source: Automatic Cuff Medical Screen Scoring - Uterine Contractions Frequency From (mins): 8 Frequency To (mins): 12 Duration From (seconds): 40 Duration To (seconds): 70 Intensity: Mild Resting: Soft to palpation - Assessment - Baby A Baseline FHR: 125 Heart Rate - NICHD Category: Category I (Normal) NST: Reactive Physician Notification - Physician Notified Physician Notified Date: 01/25/21 Physician Notified Time: 19:30 Physician: Sudheer Villatoro New Order Received: Yes - Notification Comment Comment: Order OB ultrasound, physician in department Maternal Triage Index - Maternal Triage Index Presenting for scheduled procedure w/no complaint: Yes - Scheduled/Requesting Priority 5 Scheduled/Requesting Priority 5: Yes Criteria Met for Priority 5: scheduled NST Disposition - Disposition OB Disposition: Observe, Triage Discharge Date: 01/25/21 Discharge Time: 21:20 I agree with the RN Medical Screening Exam: Yes Case reviewed; plan agreed upon as documented in EMR&OBIX.: Yes Diagnosis: SUPERVISION OF ELDERLY MULTIGRAVIDA, THIRD TRIMESTER (Patient presents for nonstress tests due to advanced maternal age. heart tones are category 1. She did have 2 variable decelerations that recovered quickly and had great variability. Due to this we did get a complete ultrasound which was completely normal and with position changes heart tones showed no fu rther variable decelerations. This time she is felt to be stable for discharge home follow up with continued antepartum surveillance to return if any concerns.)
== END 2021-01-25 21:20 | disposition home or self-care (01) ==
LOC: FBPOP 19:39
PROVIDERS: ATTEND Obstetrics & Gynecology
DX: O09.523 Supervision of elderly multigravida, third trimester (principal); Z3A.34 34 weeks gestation of pregnancy
CPT/HCPCS: 59025; 76805; 99213

== ENCOUNTER 2021-02-01 12:28 | Outpatient (CLI) | payer MEDICAID ==
[2021-02-01 13:03] VITALS: BP 133/68; PULSE 95; RESP 17
--- NOTE | 2021-02-04 12:28 | P.MSEPDOC ---
Presenting Problems - Arrival Data Date of Arrival on Unit: 02/01/21 Time of Arrival on Unit: 12:28 Mode of Transport: Ambulatory - Complaint OB-Reason for Admission/Chief Complaint: NST Comment: written orders from Dr. Villatoro for weekly NST Medical History - Gestational Age Gestational Age by ADRIAN (wks/days): 35 Weeks and 1 Days - History Complications: GDM Review of Systems - Review of Systems Constitutional: No problems Breast: No problems ENT: No problems Cardiovascular: No problems Respiratory: No problems Gastrointestinal: No problems Genitourinary: No problems Musculoskeletal: No problems Neurological: No problems Skin: No problems Vital Signs - Pulse Right Brachial Pulse Rate: 95 Pulse Assessment Method: Automatic Cuff - Respirations Respiratory Rate: 17 Oxygen Delivery Method: Room Air - Blood Pressure Right Arm Blood Pressure: 133/68 Blood Pressure Mean: 89 Blood Pressure Source: Automatic Cuff Maternal Triage Index - Maternal Triage Index Presenting for scheduled procedure w/no complaint: Yes - Scheduled/Requesting Priority 5 Scheduled/Requesting Priority 5: Yes Criteria Met for Priority 5: written order for weekly nst by Dr. Villatoro with orders to discharge pt if nst reactive Disposition - Disposition OB Disposition: Triage, Discharge to home, Written follow up instructions reviewed Discharge Date: 02/01/21 Discharge Time: 12:55 I agree with the RN Medical Screening Exam: Yes Case reviewed; plan agreed upon as documented in EMR&OBIX.: Yes Diagnosis: SUPERVISION OF ELDERLY MULTIGRAVIDA, THIRD TRIMESTER
== END 2021-02-01 12:55 | disposition home or self-care (01) ==
LOC: FBPOP 12:28
PROVIDERS: ATTEND Obstetrics & Gynecology
DX: O09.523 Supervision of elderly multigravida, third trimester (principal); Z3A.35 35 weeks gestation of pregnancy
CPT/HCPCS: 59025

== ENCOUNTER 2021-02-22 19:38 | Inpatient (IN) | payer MEDICAID ==
[2021-02-22] MEDS ORDERED: METHYLERGONOVINE 0.2 MG/ML 1 ML AMP IM PRN (20:03)
[2021-02-22] MEDS ORDERED: AMPICILLIN 2,000 MG in SODIUM CHLORIDE 0.9% 100 ML IVPB STA (20:03)
[2021-02-22] MEDS ORDERED: OXYTOCIN 10 UNIT/ML 1 ML VIAL IM PRN (20:03)
[2021-02-22] MEDS ORDERED: CARBOPROST TROMETHAMINE 250 MCG/ML 1 ML AMP IM PRN (20:03)
[2021-02-22] MEDS ORDERED: TERBUTALINE 1 MG/ML VIAL SQ PRN (20:03)
[2021-02-22] MEDS ORDERED: LIDOCAINE 0.5% (PF) 5 MG/ML (50 ML SDV) SQ PRN (20:03)
[2021-02-22] MEDS ORDERED: OXYTOCIN 30 UNITS/500 ML NS 30 UNIT in SALINE 1 500ML.BAG IV SCH (20:15)
[2021-02-22] MEDS: LACTATED RINGERS 1,000 ML IV SCH ×2 (20:19→21:16)
[2021-02-22 20:28] VITALS: RESP 16
[2021-02-22 20:51] LABS: Basophils # (A) 0.1 k/uL (0-0.2); Basophils % (A) 1 %; Eosinophils # (A) 0.1 k/uL (0-0.7); Eosinophils % (A) 1 %; HCT 35.2 % (34.0-46.0); HGB 11.5 gm/dL (11.4-16.0); Lymphocytes # (A) 2.1 k/uL (1.0-4.8); Lymphocytes % (A) 20 %; MCH 27.1 pg (25.0-35.0); MCHC 32.6 g/dL (31.0-37.0); MCV 83.4 fL (80.0-100.0); Mean Platelet Volume 8.1; Monocytes # (A) 0.4 k/uL (0-1.0); Monocytes % (A) 4 %; Neutrophils # (A) 7.4 k/uL (1.3-7.7); Neutrophils % (A) 73 %; Platelet Count 217 k/uL (150-450); RBC 4.23 m/uL (3.80-5.40); WBC 10.2 k/uL (3.8-10.6)
[2021-02-22 20:52] LABS: Glucose,Whole Blood 89 mg/dL (75-99)
--- NOTE | 2021-02-22 21:02 | P.HPOB ---
History of Present Illness H&P Date: 02/22/21 Chief Complaint: Contractions This patient is a pleasant 35-year-old 4 para 3 female estimated date of confinement 03/07/2021 estimated gestational age 38 and one sevenths weeks gestation who began having increased contractions earlier this evening. Patient was 3 cm in the office is now 4 cm dilated and uncomfortable thought to be in early labor. care is complicated by advanced maternal age, and a vanishing twin, and gestational diabetes. Patient's initial ultrasound showed a di/di twin gestation in the first trimester however at approximately 12 weeks the second twin had no cardiac activity. Patient did see maternal medicine and confirmed a vanishing twin and this completely resolved. Patient also has developed gestational diabetes. Patient is managed by Dr. Hager with excellent control. Patient now thought to be in active labor. Review of Systems Genitourinary: Reports Menstruation: Reports amenorrhea Past Medical History Additional Past Medical History / Comment(s): ULCERATIVE COLITIS, BLOOD IN THE STOOL, gestational diabetes History of Any Multi-Drug Resistant Organisms: None Reported Additional Past Surgical History / Comment(s): LEEP PROCEDURE, NASAL CYST REMOVED, COLONOSCOPY, Past Anesthesia/Blood Transfusion Reactions: No Reported Reaction Past Psychological History: No Psychological Hx Reported Smoking Status: Never smoker Past Alcohol Use History: None Reported Past Drug Use History: None Reported - Past Family History Father Family Medical History: Hypertension Mother Family Medical History: Rheumatoid Arthritis (RA) Medications and Allergies Home Medications Medication Instructions Recorded Confirmed Type Vit No.124/Iron/Folic 1 each PO DAILY 10/25/14 02/22/21 History [ Vitamin Tablet] RX: Aspirin 81 mg PO DAILY 01/25/21 02/22/21 History Allergies Allergy/AdvReac Type Severity Reaction Status Date / Time codeine Allergy Intermediate Swelling Verified 02/22/21 20:02 Exam Vital Signs Temp Pulse Resp BP Pulse Ox 02/22/21 20:01 98.2 F 94 16 140/79 100 Intake and Output 02/22/21 02/22/21 02/22/21 06:59 14:59 22:59 Other: Weight 73.482 kg - OBG Physical Exam Abdomen: bowel sounds normal, no diffuse tenderness, no bruit present, no guarding noted, no hepatomegaly, no splenomegaly, no mass Vulva: both: normal Vagina: normal moisture, no discharge Cervix: no lesion (Cervix is 4 cm dilated 50% effaced -2 station), no discharge Uterus: enlarged ( is consistent with gestational age.) Results blood work shows she is O-, rubella immune, RPR is nonreactive, hepatitis B negative, group B strep was negative, ultrasounds have been normal including a level III ultrasound. Most recent ultrasound showed estimated weight at the 78th percentile. Patient received program on December 19. Result Diagrams: 02/22/21 20:35 Assessment and Plan Assessment: This is a pleasant 35-year-old 4 para 3 female 38 and one sevenths weeks gestation active labor. Patient is a negative group B strep culture however she does have a history of positive group B strep previous therefore she'll be treated prophylactically with antibiotics. Plan at this ti me is anticipate vaginal delivery. (1) 38 weeks gestation of Current Visit: Yes Status: Acute Code(s): Z3A.38 - 38 WEEKS GESTATION OF SNOMED Code(s): 07228251 (2) Normal labor Current Visit: No Status: Acute Code(s): O80 - ENCOUNTER FOR FULL-TERM UNCOMPLICATED DELIVERY; Z37.9 - OUTCOME OF DELIVERY, UNSPECIFIED SNOMED Code(s): 75517673 (3) Rh negative status during Current Visit: No Status: Acute Code(s): O09.899 - SUPERVISION OF OTHER HIGH RISK PREGNANCIES, UNSP TRIMESTER; Z67.91 - UNSPECIFIED BLOOD TYPE, RH NEGATIVE SNOMED Code(s): 435871732 (4) Gestational diabetes Current Visit: Yes Status: Acute Code(s): O24.419 - GESTATIONAL DIABETES MELLITUS IN , UNSP CONTROL SNOMED Code(s): 75574786 (5) Elderly multigravida in third trimester Current Visit: Yes Status: Acute Code(s): O09.523 - SUPERVISION OF ELDERLY MULTIGRAVIDA, THIRD TRIMESTER SNOMED Code(s): 139488287
[2021-02-22] MEDS ORDERED: ROPIVACAINE 5MG/ML 20ML VIAL ONE (21:13)
[2021-02-22] MEDS ORDERED: SODIUM CHLORIDE 0.9% 100 ML BAG ONE (21:13)
[2021-02-22] MEDS ORDERED: fentaNYL (PF) 50 MCG/ML 5 ML AMP ONE (21:13)
[2021-02-22] MEDS ORDERED: ROPIVACAINE 100 MG, fentaNYL (PF). 200 MCG in SODIUM CHLORIDE 0.9% 76 ML EPIDURAL ONE (21:31)
[2021-02-23] MEDS ORDERED: AMPICILLIN 1,000 MG in SODIUM CHLORIDE 0.9% 50 ML IVPB SCH ×2
[2021-02-23] MEDS: LACTATED RINGERS 1,000 ML IV SCH (01:08)
[2021-02-23] MEDS ORDERED: diphenhydrAMINE 50 MG/ML 1 ML VIAL IVP PRN (02:09)
[2021-02-23] MEDS ORDERED: Rhogam IMMUNE GLOBULIN 1,500 UNIT/1 ML IM ONE (02:09)
[2021-02-23] MEDS ORDERED: BENZOCAINE/MENTHOL SPRAY 1 GM/SPRAY AEROSOL TOPICAL PRN (02:09)
[2021-02-23] MEDS ORDERED: bisacodyL 10 MG SUPP RECTAL PRN (02:09)
[2021-02-23] MEDS ORDERED: SIMETHICONE 80 MG CHEWABLE PO PRN (02:09)
[2021-02-23] MEDS ORDERED: ZOLPIDEM 5 MG TAB PO PRN (02:09)
[2021-02-23] MEDS ORDERED: LANOLIN CREAM 5 GM TUBE TOPICAL PRN (02:09)
[2021-02-23] MEDS ORDERED: diphenhydrAMINE 25 MG CAP PO PRN (02:09)
[2021-02-23] MEDS ORDERED: HYDROCORTISONE 2.5% RECTAL CREAM 30 GM TUBE RECTAL PRN (02:09)
[2021-02-23] MEDS ORDERED: ACETAMINOPHEN TAB 325 MG TAB PO PRN (02:09)
[2021-02-23] MEDS ORDERED: SENNOSIDES-DOCUSATE SODIUM 1 EACH TAB PO PRN (02:09)
--- NOTE | 2021-02-23 02:09 | P.PROBDLV ---
Vaginal Delivery Note - . Vaginal Delivery Note: Normal spontaneous vaginal delivery viable male infant Apgars 9 and 9 delivery time is 0145 hrs. Please see dictated H&P for intimate details of this patient's admission. Brief summary is a pleasant 35-year-old 4 para 3 female 38 and one sevenths weeks gestation admitted to labor and delivery with complaints of regular painful contractions found to be in active labor. Patient is artificial rupture membranes at 4-5 cm dilated for clear fluid. Patient becomes uncomfortable and does get an epidural for pain control. Patient's labor progresses and she gets to complete. Patient pushes approximately 3 times and pushes the head to the perineum. There is a tight band posteriorly and therefore small midline episiotomy is made. With this done, we easily have controlled delivery of 's head over the perineum. Infant's position is straight occiput anterior presentation. Mouth and nares are bulb suctioned. There is a loose nuchal cord which is easily reduced. With gentle downward traction we then have deliver the anterior and posterior shoulder and rest this infant's body. Is a vigorous viable male Apgars 9 and 9 delivery time was 0145 hours. has spontaneous respirations and good cry and grossly appears normal. After delivery of the infant the umbilical cord is allowed to stop pulsating then doubly clamped and cut. The placenta is then spontaneously delivered intact. Inspection of perineum shows a first-degree laceration which repaired with 3-0 Vicryl usual fashion. Excellent reapproximation is noted. Estimated blood loss is 100 mL. There are no complications. All counts are correct 3. Infant and mother stable delivery room.
[2021-02-23] MEDS ORDERED: OXYTOCIN 30 UNITS/500 ML NS 30 UNIT in SALINE 1 500ML.BAG IV SCH (02:15)
[2021-02-23] MEDS: IBUPROFEN 600 MG TAB PO PRN ×3 (09:12→22:48)
--- NOTE | 2021-02-23 11:58 | P.PNOBGVD ---
Subjective - Subjective Principal diagnosis: Status post vaginal delivery day #0 Interval history: Patient is doing well. She is breast-feeding. Lochia is decreasing. Her pain is well-controlled. Patient reports: Reports appetite normal, Reports voiding normally, Reports pain well controlled, Reports ambulating normally : doing well, nursing well Objective - Latest Vital Signs Latest vital signs: Vital Signs Temp Pulse Resp BP Pulse Ox 02/23/21 08:45 98.4 F 96 16 131/84 02/23/21 04:00 98.6 F 81 16 113/67 02/23/21 03:30 79 16 114/65 02/23/21 03:00 82 16 120/59 02/23/21 02:45 82 16 117/57 02/23/21 02:30 86 16 117/62 02/23/21 02:15 86 16 120/63 02/23/21 02:00 98.5 F 82 16 123/58 02/22/21 20:01 98.2 F 94 16 140/79 100 Intake and Output 02/22/21 02/23/21 02/23/21 22:59 06:59 14:59 Intake Total 2.317 Balance 2.317 Intake: Intake, IV Titration 2.317 Amount Oxytocin 30 Units/500 ml 2.317 Ns 30 unit In Saline 1 500ml.bag @ Per Protocol IV .Q0M [facility] Rx#:[id number] Other: # Voids 1 1 Weight 73.482 kg - Exam Extremities: Present: normal. Absent: tenderness Abdomen: Present: normal appearance, soft. Absent: distention, tenderness Uterus: Present: normal, firm. Absent: tenderness Assessment and Plan Assessment: Status post vaginal delivery day #0 Plan: Continue with care today. Anticipate discharge home early tomorrow morning. Will give prescription for breast pump when she does go home.
--- NOTE | 2021-02-23 12:03 | P.DS ---
Providers Date of admission: 02/22/21 19:38 Expected date of discharge: 02/24/21 Attending physician: Sudheer Villatoro Primary care physician: Stated None Hospital Course: This is a 35-year-old female 4 para 3 at 38-2/7 weeks who presented in active labor. She delivered vaginally a viable male infant on 02/23/2021 with scores of 9 at 1 minute and 9 at 5 minutes and a weight of 7 lbs. 14 oz. Her course has been uncomplicated. Lochia is decreasing. Pain is well-controlled. Vital signs are stable. Abdomen is soft with fundus firm and nontender. Extremities show negative Homans. Impression is status post vaginal delivery day #0. Plan is to discharge home early tomorrow morning. Routine instructions are given. She will use [id number] ibuprofen if needed. She would like a prescription for a breast pump. She will follow up with Dr. Villatoro in 6 weeks. She is advised to call the office if she has any further questions or concerns prior to her appointment time. Procedures: Spontaneous vaginal delivery of a viable male infant on 02/23/2021 Patient Condition at Discharge: Stable Plan - Discharge Summary New Discharge Prescriptions: Continue Vit No.124/Iron/Folic [ Vitamin Tablet] 1 each PO DAILY Discontinued Aspirin 81 mg PO DAILY Discharge Medication List Vit No.124/Iron/Folic [ Vitamin Tablet] 1 each PO DAILY 10/25/14 [History] Follow up Appointment(s)/Referral(s): Sudheer Villatoro MD [STAFF PHYSICIAN] - 6 Weeks Activity/Diet/Wound Care/Special Instructions: Instructions 1. Do not begin any exercise program for 3 weeks. 2. Do not resume sexual relations for 3 weeks or longer if uncomfortable. 3. You may take tub baths or showers at any time. 4. You may use tampons if desired after 3 weeks. 5. Keep the area of episiotomy (stitches) clean and dry. 6. If you are not nursing, wear a good fitting, supportive bra during the day and limit fluid intake for at least 1 week to prevent breast engorgement. 7. Call the office, [phone], within the next week to make appointment for your 6 week checkup if it has not already been made. 8. Report any of the following occurrences to the doctor promptly: a. Heavy, excessive bleeding b. Chills, fever c. Burning or frequency of urination d. Pain or redness and breasts if nursing e. Increasing pain or swelling in episiotomy (stitches). In addition to the above instructions, the following additional should be followed: 1. No heavy lifting or straining (exercising) until after 6 week checkup. 2. Keep abdominal incision clean and dry: You may wear a dressing if more comfortable. 3. Make office appointment for 10 days after going home or as instructed by her doctor. Discharge Disposition: HOME SELF-CARE
[2021-02-24] MEDS: IBUPROFEN 600 MG TAB PO PRN (08:44)
[2021-02-24 09:06] VITALS: BP 125/79; PULSE 83; TEMP 97.4
== END 2021-02-24 09:55 | disposition home or self-care (01) | DRG 807 ==
LOC: 4FBP 19:38
PROVIDERS: ADMIT Obstetrics & Gynecology; ATTEND Obstetrics & Gynecology
PROC: 10E0XZZ Delivery of Products of Conception, External Approach (ICD-10-PCS; principal; 2021-02-23)
PROC: 0HQ9XZZ Repair Perineum Skin, External Approach (ICD-10-PCS; 2021-02-23)
DX: O24.429 Gestational diabetes mellitus in childbirth, unspecified control (principal); Z37.0 Single live birth; O26.893 Other specified pregnancy related conditions, third trimester; O69.81X0 Labor and delivery complicated by cord around neck, without compression, not applicable or unspecified; O70.0 First degree perineal laceration during delivery; Z3A.38 38 weeks gestation of pregnancy; Z79.82 Long term (current) use of aspirin; Z82.49 Family history of ischemic heart disease and other diseases of the circulatory system
CPT/HCPCS: 85025; 85461; 86850; 86900; 86901; 88307

== ENCOUNTER → 2021-07-26 | Outpatient (CLI) | payer MEDICAID | END | disposition home or self-care (01) | LOC: LABWHC1 13:16 | PROVIDERS: ATTEND Internal Medicine | DX: O24.419 Gestational diabetes mellitus in pregnancy, unspecified control (principal); Z3A.00 Weeks of gestation of pregnancy not specified | CPT/HCPCS: 36415; 82947; 83036 ==

== ENCOUNTER → 2022-01-02 | Outpatient (CLI) | payer MEDICAID ==
--- NOTE | 2022-01-02 07:46 | US ---
EXAMINATION TYPE: US transvaginal DATE OF EXAM: 01/02/2022 COMPARISON: NONE CLINICAL HISTORY: R10.2 PELVIC AND PERINEAL PAIN. TECHNIQUE: Transvaginal (TV). Transabdominal sonographic images of the pelvis were acquired. Trans vaginal sonographic images were medically necessary to better assess the following anatomy: Date of LMP: EXAM MEASUREMENTS: Uterus: 7.0 x 4.2 x 6.3 cm Endometrial Stripe: 0.5 cm Right Ovary: 3.4 x 2.6 x 2.1 cm Left Ovary: 2.7 x 2.6 x 1.9 cm 1. Uterus: Anteverted, fibroid measuring 2.0 x 1.9 x 2.1cm 2. Endometrium: wnl 3. Right Ovary: multiple follicles noted 4. Left Ovary: wnl 5. Bilateral Adnexa: wnl 6. Posterior cul-de-sac: free fluid anterior to uterus IMPRESSION: 1. Leiomyomatous change of the uterus. 2. Small right ovarian follicles and a small amount of free fluid within the pelvis.
== END | disposition home or self-care (01) ==
LOC: RADUSWWP 06:56
PROVIDERS: ATTEND Obstetrics & Gynecology
DX: D25.9 Leiomyoma of uterus, unspecified (principal)
CPT/HCPCS: 76830

== ENCOUNTER → 2023-09-01 | Outpatient (CLI) | payer MEDICAID ==
--- NOTE | 2023-09-01 18:34 | MM ---
Reason for Exam: Screening (asymptomatic). Last mammogram was performed 3 year(s) and 5 month(s) ago. Patient History: Menarche at age 10. First Full-Term at age 28. Late child-bearing (after 30). Patient has history of breast feeding. Hormonal Contraceptives for 8 years from age 18 until age 26. 2006, Benign Cyst Aspiration on the right side. Risk Values: Martha 5 year model risk: 0.8%. NCI Lifetime model risk: 13.6%. Prior Study Comparison: 04/18/2020 Bilateral Diagnostic Mammogram, [facility]. Tissue Density: The breast tissue is extremely dense which could obscure a lesion on mammography. Findings: Analyzed By CAD. There is no suspicious group of microcalcifications or new suspicious mass in either breast. Overall Assessment: Negative, BI-RAD 1 Management: Screening Mammogram of both breasts in 1 year. Supplementary screening with breast ultrasound or breast MRI can be considered given the extremely dense tissues. Patient should continue monthly self-breast exams. A clinical breast exam by your physician is recommended on an annual basis. This exam should not preclude additional follow-up of suspicious palpable abnormalities. Note on Martha scores and lifetime risk: 1. A Martha score greater than 3% is considered moderate risk. If this is the case, consider specialist referral to assess eligibility for a risk reducing agent. 2. If overall lifetime risk for the development of breast cancer is 20% or higher, the patient may qualify for future screening with alternating mammogram and breast MRI. Electronically signed and approved by: Cameron Sr M.D. Radiologist
== END | disposition home or self-care (01) ==
LOC: RADMAMWWP 06:49
PROVIDERS: ATTEND Obstetrics & Gynecology
DX: Z12.31 Encounter for screening mammogram for malignant neoplasm of breast (principal)
CPT/HCPCS: 77063; 77067

== ENCOUNTER 2024-05-06 10:19 | Day surgery (SDC) | payer MEDICAID ==
[2024-05-06 10:56] VITALS: TEMP 97.6
[2024-05-06] MEDS: IV FLUID CONTINUATION 1,000 ML IV ONE (10:59)
[2024-05-06] MEDS: LACTATED RINGERS 1,000 ML IV SCH (11:00)
[2024-05-06] MEDS ORDERED: PROPOFOL 10 MG/ML 20 ML VIAL IV ONE (11:16)
[2024-05-06] MEDS ORDERED: LIDOCAINE 1% INJ 10MG/ML (20 ML MDV) ONE (11:16)
--- NOTE | 2024-05-06 11:37 | P.PCN ---
Date of Procedure: 05/06/24 Procedure(s) Performed: Brief history: Patient is a pleasant scheduled for an elective upper endoscopy as well as colonoscopy as a part of evaluation of globus sensation in her throat area/screening for colon cancer and strong family Struve colon cancer. Her 2 maternal aunts and maternal uncles diagnosed with colon cancer in their 50s and 60s respectively, HER2 close cousins were diagnosed with colon cancer at age 28 and 46 respectively Procedure performed: Esophagogastroduodenoscopy with biopsy Colonoscopy Preoperative diagnosis: Globus pharyngeus Screening for colon cancer/strong family history of colon cancer Anesthesia: MAC Procedure: After informed consent was obtained from the patient was brought into the endoscopy unit and IV sedation was administered by anesthesia under continuous monitoring. Initially upper endoscopy was done. The Olympus GF 160 video endoscope was inserted inserted into the mouth and esophagus intubated without any difficulty and was gradually advanced into the stomach and duodenum and carefully examined. The bulb and second part of the duodenum appeared normal. The scope was then withdrawn into the stomach adequately insufflated with air and upon careful examination the antrum and body, cardia and fundus appeared normal. The scope was then withdrawn into the esophagus. Mild sliding-type hiatal hernia noted. The GE junction was located at 40 cm to the incisors. It appeared regular with no erythema erosions or ulcerations. These were done from the distal esophagus. Rest of the esophagus appeared normal. Cervical esophagus was carefully examined and appeared normal. Patient tolerated the procedure well. At this time the patient continued to remain sedation. Initial digital rectal examination was normal. Olympus CF 160 video colonoscope was then inserted into the rectum and gradually advanced to the cecum without any difficulty. Careful examination was performed as the scope was gradually being withdrawn. The rectum appeared normal. The prep was excellent. The cecum, ascending colon, transverse colon, descending colon, sigmoid colon and rectum appeared normal. Retroflexion was performed in the rectum and no lesions were noted. Patient tolerated the procedure well. Impression: 1. Upper endoscopy revealed small sliding-type hiatal hernia but no evidence of esophagitis or esophageal stricture 2. Colonoscopy was within normal limits with no evidence of colorectal neoplasia Recommendations: Findings of this examination were discussed with the patient as well as family. She was advised to follow-up with the biopsy results. Trial of omeprazole 20 mg daily for 6 weeks for possible reflux causing globus sensation. Recommended genetic testing for Cox syndrome and in the meantime repeat colonoscopy in 3 years because of the strong family history of colon cancer
[2024-05-06 11:42] VITALS: RESP 16
[2024-05-06 11:58] VITALS: BP 119/71; PULSE 70
== END 2024-05-06 12:20 | disposition home or self-care (01) ==
LOC: ORWHC2ENDO 10:19
PROVIDERS: ATTEND Internal Medicine Gastroenterology
DX: Z12.11 Encounter for screening for malignant neoplasm of colon (principal); K22.89 Other specified disease of esophagus; K44.9 Diaphragmatic hernia without obstruction or gangrene; R09.A2 Foreign body sensation, throat; K21.9 Gastro-esophageal reflux disease without esophagitis; Z80.0 Family history of malignant neoplasm of digestive organs; Z87.19 Personal history of other diseases of the digestive system; Z86.39 Personal history of other endocrine, nutritional and metabolic disease; Z79.899 Other long term (current) drug therapy; Z88.5 Allergy status to narcotic agent
CPT/HCPCS: 81025; 88305; 43239; J2003; J2704; G0105

== ENCOUNTER → 2024-09-27 | Outpatient (CLI) | payer MEDICAID ==
--- NOTE | 2024-09-27 07:51 | MM ---
Reason for Exam: Screening (asymptomatic). Last mammogram was performed 1 year(s) and 1 month(s) ago. Patient History: Menarche at age 10. First Full-Term at age 28. Late child-bearing (after 30). Patient has history of breast feeding. Hormonal Contraceptives for 8 years from age 18 until age 26. 2006, Benign Cyst Aspiration on the right side. Risk Values: Martha 5 year model risk: 0.8%. NCI Lifetime model risk: 13.5%. Prior Study Comparison: 04/18/2020 Bilateral Diagnostic Mammogram, [facility]. 09/01/2023 Bilateral MG 3D screening mammo w/cad, [facility]. Tissue Density: The breasts are extremely dense, which lowers the sensitivity of mammography. Findings: Analyzed By CAD. There is no suspicious group of microcalcifications or new suspicious mass in either breast. Overall Assessment: Negative, BI-RAD 1 Management: Screening Mammogram of both breasts in 1 year. . Patient should continue monthly self-breast exams. A clinical breast exam by your physician is recommended on an annual basis. This exam should not preclude additional follow-up of suspicious palpable abnormalities. Note on Martha scores and lifetime risk: 1. A Martha score greater than 3% is considered moderate risk. If this is the case, consider specialist referral to assess eligibility for a risk reducing agent. 2. If overall lifetime risk for the development of breast cancer is 20% or higher, the patient may qualify for future screening with alternating mammogram and breast MRI. [facility], , 09/27/2024 7:48 AM. Electronically signed and approved by: Reza Zavala M.D. Radiologis
[2024-09-27 15:34] LABS: Thyroid Peroxidase Antibodies 26.1 U/mL (0.0-33.0)
[2024-09-27 15:49] LABS: ALT 14 U/L (8-44); AST 18 U/L (13-35); Albumin 4.4 g/dL (3.8-4.9); Albumin/Globulin Ratio 1.83 Ratio (1.60-3.17); Alkaline Phosphatase 53 U/L (41-126); BUN/Creat Ratio 13.12 Ratio (12.00-20.00); Blood Urea Nitrogen 10.5 mg/dL (9.0-27.0); Calcium 9.4 mg/dL (8.7-10.3); Chloride 106 mmol/L (96-109); Globulin 2.4 g/dL (1.6-3.3); Glucose 84 mg/dL (70-110); LDL Cholesterol,Calculated 76.9 mg/dL (0.0-131.0); Potassium 4.8 mmol/L (3.5-5.5); Sodium 139 mmol/L (135-145); T4, Free (Free Thyroxine) 1.21 ng/dL (0.80-1.80); Total Bilirubin 0.5 mg/dL (0.3-1.2); Total Protein 6.8 g/dL (6.2-8.2); VLDL Calculation 8.92 mg/dL (5.00-40.00)
[2024-09-27 15:50] LABS: Basophils # (A) 0.05 X 10*3/uL (0.00-0.10); Eosinophils # (A) 0.07 X 10*3/uL (0.04-0.35); Eosinophils % (A) 1.5 %; HCT 40.4 % (37.2-46.3); HGB 12.2 g/dL (12.0-15.0); Lymphocytes # (A) 1.58 X 10*3/uL (0.90-5.00); Lymphocytes % (A) 33.1 %; MCH 26.9 pg (27.0-32.0); MCHC 30.2 g/dL (32.0-37.0); MCV 89.2 FL (80.0-97.0); Mean Platelet Volume 11.4 FL (9.5-12.2); Monocytes # (A) 0.38 X 10*3/uL (0.20-1.00); Monocytes % (A) 7.9 %; NRBC Per 100 WBC 0 X 10*3/uL (0.00-0.01); Neutrophils # (A) 2.69 X 10*3/uL (1.80-7.70); Neutrophils % (A) 56.3 %; Platelet Count 232 X 10*3/uL (140-440); RBC 4.53 X 10*6/uL (4.10-5.20); RDW 15.3 % (11.5-14.5); WBC 4.78 X 10*3/uL (4.50-10.00)
== END | disposition home or self-care (01) ==
LOC: RADMAMWWP 07:29
PROVIDERS: ATTEND Family Medicine
DX: Z12.31 Encounter for screening mammogram for malignant neoplasm of breast (principal); R92.343 Mammographic extreme density, bilateral breasts; E04.1 Nontoxic single thyroid nodule; E55.9 Vitamin D deficiency, unspecified
CPT/HCPCS: 77063; 77067; 80053; 80061; 82306; 83036; 84439; 84443; 85025; 86376; 86800